=== PATIENT | male | born 1955 | race Caucasian/White ===

== ENCOUNTER 2025-06-13 09:41 | Outpatient (CLI) | payer MEDICARE, SELFPAY ==
--- OUTSIDE RECORDS SUMMARY | 2025-06-13 10:22 | XMS_ITS | Encounter Summary ---
Author Organization [facility] Care Team Providers Care Manager Placement Name Role Phone Leonel Menjivar MD Primary Care Provider [phone] Tequila Howard MD Unavailable [phone] Encounter Details Date Type Department Care Team (Latest Contact Info) Description 06/13/2025 Travel Social History Tobacco Use Types Packs/Day Years Used Date Smoking Tobacco: Never Passive Smoke Exposure: Never Smokeless Tobacco: Never Alcohol Use Standard Drinks/Week Comments Never 0 (1 standard drink = 0.6 oz pur e alcohol) [facility] Utilities Answer Date Recorded In the past 12 months has [facility] electric, gas, oil, or water company threatened to shut off services in your home? Patient declined 02/08/2024 Social Connection and Isolation Panel Answer Date Recorded In a typical week, how many times do you talk on the phone with family, friends, or neighbors? More than three times a week 02/08/2024 Frequency of Social Gatherin gs with Friends and Family Not on file 02/08/2024 Attends [employer] Services Not on file 02/07 Active Member of Clubs or Organizations Not on f ile 02/08/2024 Attends Club or Organization Meetings Not on sandra e 02/08/2024 Marital Status Not on file 02/08/2024 AUDIT-C Answer Date Recorded Q1: How often do you have a drink containing alcohol? Never 02/08/2024 Q2: How many drinks containi ng alcohol do you have on a typical day when you are drinking? Patient does not drink Q3: How often do you have si x or more drinks on one occasion? Never 02/08/2024 Overall Financial Resource Strain (CARDIA) Answe r Date Recorded How hard is it for you to pa y for the very basics like food, housing, medical care, and heating? Patient declined 02/08/2024 PHQ-2 Answer Date Recorded Total Score - Questions 1-9 0 12/07 [facility] - Occupational Stress Questionnaire Answer Date Recorded Do you feel stress - tense, restless, nervous, or anxious, or unable to sleep at night because your mind is troubled all the time - these days? Not at all 02/08/2024 Hunger Vital Sign Answer Date Recorded Within the past 12 months, y ou worried that your food would run out before you got the money to buy more. Patient declined Within the past 12 months, t he food you bought just didn't last and you didn't have money to get more. Patient declined 11/2023 PRAPARE - Transportation Answer Date Re corded In the past 12 months, has l ack of transportation kept you from medical appointments or from getting medications? Patient declined 02/08/2024 In the past 12 months, has l ack of transportation kept you from meetings, work, or from getting things needed for daily living? Patient declined 02/08/2024 Housing Stability Vital Sign Answer Marcos e Recorded In the last 12 months, was t here a time when you were not able to pay the mortgage or rent on time? Patient declined 02/08/20 24 In the last 12 months, how many places have you lived? 0 02/08/2024 In the last 12 months, was t here a time when you did not have a steady place to sleep or slept in a [place] [facility] (including now)? Patient declined 02/08/2024 Education Answer Date Recorded What is the highest level of school you have completed or the highest degree you have received? Associate degree: academic program 01/19/2023 Sexually Active Control Partners Comments Not Currently Sex and Gender Information Value Date Recorded Sex Assigned at Not on file Legal Sex Male 12:19 AM CDT Gender Identity Not on file Sexual Orientation Not on file documented as of this encounter Plan of Treatment Not on file documented as of this encounter Visit Diagnoses Not on filedocumented in this encounter Additional Health Concerns Assessment Noted Time PHQ-9 Depression Total Score: 0 01/04/20 25 9:18 AM CDT documented as of this encounter Care Teams Manager Placement Relationship Specialty Start Date End Date Leonel Menjivar MD PCP - General Internal Medicine 07/13/20 Tequila Howard MD [address] [address] Consulting Physician Rheumatology 08/13/20 documented as of this encounter
--- OUTSIDE RECORDS SUMMARY | 2025-06-13 10:22 | XMS_ITS | Clinical Summary ---
Author Organization [facility] Address [address], [address] [address] Phone Care Team Providers Care Potato Loader Name Role Phone Leonel Menjivar MD Primary Care Provider [phone] Tequila Howard MD Unavailable [phone] Allergies Active Allergy Reactions Criticality Noted Date Comments Pollen Extract Runny Nose Low 03/15/2019 Medications aspirin EC 81 MG Tablet Delayed Response Take 81 mg by mouth every morning. 9 Active atorvastatin (LIPITOR) 40 MG Tablet TAKE 1 TABLET BY MOUTH NIGHTLY 0 Active clopidogrel (PLAVIX) 75 MG Tablet every morning. 0 Active Etanercept 50 MG/ML Solution Prefilled Syringe 50 mg by Subcutaneous route every 14 days. Mondays Active metoprolol tartrate (LOPRESSOR) 25 MG Tablet 2 times daily. 0 Active enalapril (VASOTEC) 20 MG Tablet 2 Active amLODIPine (NORVASC) 5 MG Tablet Take 5 mg by mouth daily. 3 Active Acetaminophen (TYLENOL EXTRA STRENGTH PO) Take 2 Tablets by mouth every 8 hours as needed. Active fluticasone (FLONASE) 50 MCG/ACT Suspension USE 1 SPRAY(S) IN EACH NOSTRIL ONCE DAILY IN THE MORNING 48 g 4 Active carbamide peroxide (DEBROX) 6.5 % Solution Place 5 Drops in affected ear(s) 2 times daily. 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 03/25/2019 Psoriasis 10/06/2011 Encounters Date Type Department Care Team Description 06/13/2025 Travel 05/30/2025 10:45 AM CDT Office Visit [facility] - [place] [address] [place] [address] Milagros Ken, LAURYN Impacted cerumen of right ear (Primary Dx) Discharge Disposition: Discharged to home or Selfcare 05/30/2025 Travel 05/29/2025 Telephone [facility] [address] [place] [id number] Leonel Menjivar MD Appointment from Last 3 Months Immunizations Immunization Administration Dates Next Due Covid-19, Mrna, Lnp-s, Pf, 3 0 Mcg/0.3 Ml Dose (Pfizer) 12/15/2020,11/20/2020 Covid-19, Mrna, Lnp-s, Pf, Kashif-sucrose, 30 Mcg/0.3 Ml (Pfizer) 06/15/2024 Influenza Vaccine greater than 3 yrs 06/21/2020, 06/17/2013 Influenza, High-dose, Quadrivalent 06/22/2023,,06/30/2021 Influenza, Recombinant, Quadrivalent,injectable, Pf 06/21/2020 Influenza, Seasonal, Injecta ble, Undefined 06/17/2013 Influenza, high-dose, trivalent, PF 10/05/2024,06/22/2023,07/05/2022,06/27 Pneumococcal conjugate PCV20 , polysaccharide [id number] conjugate, adjuvant, PF 12/21/2021 Sars-cov-2 (Covid-19) Vaccin e, Unspecified 06/22/2023 Zoster Vaccine Recombinant 05/23/2024,03/15/2024 Family History Medical History Relation Name Comments No Known Problems Brother Heart Attack Father Stroke Father Heart Attack Mother Relation Name Status Comments Brother Alive Father Mother Sister Social History Tobacco Use Types Packs/Day Years Used Date Smoking Tobacco: Never Passive Smoke Exposure: Never Smokeless Tobacco: Never Tobacco Cessation:Counseling Given: No Alcohol Use Standard Drinks/Week Comments Never 0 (1 standard drink = 0.6 oz pur e alcohol) [facility] Utilities Answer Date Recorded In the past 12 months has th e electric, gas, oil, or water company threatened [...] and Family Not on file 02/08/2024 Attends [employer] Services Not on file 02/07 Active Member [...] Total Score - Questions 1-9 0 12/07 [facility] - Occupational [...] place to sleep or slept in a custodial (including now)? Patient declined 02/08/2024 Education Answer [...] on file Sexual Orientation Not on file Last Filed Vital Signs Vital Sign Reading Time Taken Comments Blood Pressure 110/74 05/30/2025 10:37 AM CDT Pulse 61 05/30/2025 10:37 AM CDT Temperature 36.3 C (97.4 F) 05/30/2025 10:37 AM CDT Respiratory Rate 12 05/30/2025 10:37 AM CDT Oxygen Saturation 98% 05/30/2025 10:37 AM CDT Inhaled Oxygen Concentration - - Weight 84.4 kg (186 lb) 05/30/2025 10:37 AM CDT Height 175.3 cm (5' 9) 02/20/2025 1:11 PM CDT Body Mass Index 27.47 02/20/2025 1:11 PM CDT Plan of Treatment Health Maintenance Due Date Last Done Comments Hepatitis C Virus (HCV) Screening 1955 TdaP Immunization 1955 Cologuard 1998 Respiratory Syncytial Virus (RSV) Immunization (Adult) (1 - Risk 60-74 years 1-dose series) 2013 Immunochemical Fecal Occult Blood 12/16/2023 12/15/2022, 06/17/2021, 06/11/2020 Medicare Subsequent AWV [id number] 02/07/2025 02/08/2024, 03/25/2021 Influenza Immunization (#1) 2025 10/0 05/2024, 06/22/2023, 06/22/2023, Additional history exists SARS-COV-2 Immunization ( season) 2025 06/15/2024, 06/22/2023, 06/30/2021, Additional history exists Colonoscopy 08/04/2028 08/04/2023 Colorectal Cancer Screening 08/04/2028 Pneumococcal Immunization (50+ years) Completed 12/21/2021 Pneumococcal Immunization Combined Discontinued 12/21/2021 PSA Discussion Discontinued 02/22/2024, 04/08/2021 Zoster Immunization Completed 05/23/2024, Hepatitis B Immunization Aged Out No longer eligible based on patient's age to complete this topic Human Papillomavirus (HPV) Immunization Aged Out No longer eligible based on patient's age to complete this topic Meningococcal Immunization (ACWY) Aged Out No longer eligible based on patient's age to complete this topic Rotavirus Immunization Aged Out No lo nger eligible based on patient's age to complete this topic Procedures Procedure Name Priority Date/Time Associated Diagnosis Comments PSA SCREEN Routine 02/22/2024 Screening for prostate cancer STOOL, OCCULT BLOOD IMMUNOASSAY (IFOB) 06/17/2021 12:00 AM CDT from Last 3 Months or Most Recently Relevant to Health Maintenance Results * PSA SCREEN (02/22/2024) Blood 02/22/2024 us Milagros Ken PAC CHEMISTRY ORDERAB LES Final Result * STOOL, OCCULT BLOOD IMMUNOASSAY (IFOB) (06/17/2021 12:00 AM CDT) 06/17/2021 us Not On File Provider BODY FLUIDS & STOOLS ORDERA BLES Final Result SCAN from Last 3 Months or Most Recently Relevant to Health Maintenance [place] [address] MEDICARE C [employer] Care Teams Potato Loader Relationship Specialty Start Date End Date Leonel Menjivar MD PCP - General Internal Medicine 07/13/20 Tequila Howard MD [address] [place] [id number] Consulting Physician Rheumatology 08/13/20
[2025-06-13 18:44] LABS: Alanine Aminotransferase 21 U/L (6-50); Albumin Level 4.1 g/dL (3.5-5.1); Alkaline Phosphatase 69 U/L (38-126); Anion Gap 3 mmol/L (4-12); Aspartate Amino Transferase 76 U/L (17-59); Bilirubin,Total 0.9 mg/dL (0.2-1.3); Blood Urea Nitrogen 23 mg/dL (9-20); CRP < 0.5 mg/dL (<1.0); Calcium 8.9 mg/dL (8.4-10.2); Carbon Dioxide 28 mmol/L (22-30); Chloride 107 mmol/L (98-107); Cholesterol 87 mg/dL (0-200); Estimated Glomerular Filt Rate > 60; Glucose 88 mg/dL (65-110); HDL Direct 33 mg/dL; Potassium 4.6 mmol/L (3.4-5.0); Sodium 138 mmol/L (137-145); Total Protein 7.1 g/dL (6.3-8.2); Triglycerides 64 mg/dL (<150)
[2025-06-13 18:45] LABS: Hematocrit 42.0 % (42.0-52.0); Hemoglobin 13.2 g/dL (14.0-18.0); Immature Granulocyte Percent A 0.2 % (0-0.5); Lymphocytes Absolute Auto 1.75 K/mm3 (0.9-3.2); Mean Corpuscular HGB Conc 31.4 g/dl (32-36); Mean Corpuscular Hemoglobin 31.2 pg (26-34); Mean Corpuscular Volume 99.3 fl (80-100); Nucleated Red Blood Cells Absolute Auto 0.000 K/mm3 (0.0-0.012); Nucleated Red Blood Cells Perc 0.0 % (0.0-0.2); Platelet Count Result 173 k/mm3 (150-375); Red Blood Count 4.23 M/mm3 (4.6-6.20); White Blood Count 5.5 K/mm3 (4.5-10.0)
[2025-06-13 19:09] LABS: Add Urine Microscopic? YES; Appearance Urine Clear (Clear); Glucose Urine UA Negative (Negative); Leukocyte Esterase Ur Trace LEU/UL (Negative); Nitrate Urine Negative (Negative); Non Pathogenic Casts 0-2; Specific Grav Ur 1.020 (1.001-1.035)
[2025-06-13 19:48] LABS: Hemoglobin A1C 4.9 % (<5.7)
== END 2025-06-13 09:42 | disposition home or self-care (01) ==
PROVIDERS: PCP Internal Medicine; Visit Provider Internal Medicine
DX: M06.09 Rheumatoid arthritis without rheumatoid factor, multiple sites (principal); Z79.899 Other long term (current) drug therapy; E78.5 Hyperlipidemia, unspecified; I10 Essential (primary) hypertension; I25.10 Atherosclerotic heart disease of native coronary artery without angina pectoris; I25.2 Old myocardial infarction
CPT/HCPCS: 36415; 80053; 80061; 80069; 81001; 83036; 85025; 85652; 86140